=== PATIENT | female | born 1990 | race Two or more races ===

== ENCOUNTER 2019-07-24 21:15 | Emergency (ER) | payer MEDICAID ==
[~2019-07-24] VITALS: Ht 162.6 cm; Wt 54.4 kg
[2019-07-24 21:26] VITALS: BP 110/69
[2019-07-25] MEDS ORDERED: LIDOCAINE 1% HCL (LOCAL ANESTH.) INJ 20ML MDV ONE (00:12)
[2019-07-25] MEDS ORDERED: LIDOCAINE 1% (LOCAL ANESTH.) PF 5ml SDV ID ONE (00:15)
[2019-07-25] MEDS ORDERED: TETANUS-DIPTH-ACEL PERTUSSIS 0.5ML SYR Tdap IM ONE (00:30)
== END 2019-07-25 00:51 | disposition home or self-care (01) ==
LOC: ER 21:20
DX: S61.213A Laceration without foreign body of left middle finger without damage to nail, initial encounter (principal); W26.0XXA Contact with knife, initial encounter; Y93.89 Activity, other specified; Y92.090 Kitchen in other non-institutional residence as the place of occurrence of the external cause; Y99.8 Other external cause status
CPT/HCPCS: 12001; 73130; 90471; 90715; 99283; J2001

== ENCOUNTER 2019-08-04 10:09 | Emergency (ER) | payer MEDICAID ==
[~2019-08-04] VITALS: Ht 157.5 cm; Wt 54.4 kg
[2019-08-04 10:35] VITALS: BP 112/69
== END 2019-08-04 11:30 | disposition home or self-care (01) ==
LOC: ER 10:09
DX: S61.213D Laceration without foreign body of left middle finger without damage to nail, subsequent encounter (principal); X58.XXXD Exposure to other specified factors, subsequent encounter
CPT/HCPCS: 29130

== ENCOUNTER 2021-07-08 11:46 | Emergency (ER) | payer MEDICAID ==
[~2021-07-08] VITALS: Ht 157.5 cm; Wt 61.2 kg
[2021-07-08 12:15] VITALS: BP 114/69
== END 2021-07-08 12:46 | disposition home or self-care (01) ==
LOC: ER 11:46
DX: B02.9 Zoster without complications (principal); F12.10 Cannabis abuse, uncomplicated